=== PATIENT | female | born 1970 | race Caucasian/White ===

== ENCOUNTER → 2018-12-13 12:32 | Outpatient (CLI) | payer OTHER, SELFPAY ==
--- NOTE | 2018-12-13 | DI.US.S_ITS ---
PROCEDURE: US PERIPH VENOUS LOW EXTREM BI INDICATIONS: EDEMA; CALF PAIN TECHNIQUE: Real-time imaging, as well as color and pulse Doppler interrogation, were performed of the deep veins of both legs from the inguinal ligament to the popliteal fossa. COMPARISON: None. FINDINGS: Right: The common femoral, femoral and popliteal veins are normally compressible, and free of intraluminal thrombus. Color and pulse Doppler demonstrate normal phasic intravascular flow. There is normal augmentation response to distal compression maneuver. Left: The common femoral, femoral and popliteal veins are normally compressible, and free of intraluminal thrombus. Color and pulse Doppler demonstrate normal phasic intravascular flow. There is normal augmentation response to distal compression maneuver. IMPRESSION: No deep venous thrombosis identified within either the left or right lower extremities. Dictated by: Bishop Torrez [facility] Interpreted: Gurdeep Sanchez MD on 12/13/2018 at 15:21 Approved by: Gurdeep Sanchez M.D. on 12/13/2018 at 16:32
--- NOTE | 2018-12-13 | DI.RAD.S_ITS ---
PROCEDURE: XR FOOT LT MIN 3V INDICATIONS: Localized swelling, mass and lump, lower limb, gunnar TECHNIQUE: 3 views of the foot were acquired. COMPARISON: None. FINDINGS: Bones: No fractures or dislocations. No suspicious bony lesions. Mild bunion and first metatarsophalangeal joint degeneration. Soft tissues: No tibiotalar joint effusion. Achilles tendon appears normal. IMPRESSION: No mass is identified. Mild bunion first metatarsophalangeal joint degeneration. Dictated by: Pedro Lima M.D. on 12/13/2018 at 17:28 Approved by: Pedro Lima M.D. on 12/13/2018 at 17:29
--- NOTE | 2018-12-13 | DI.RAD.S_ITS ---
PROCEDURE: XR FOOT RT MIN 3V INDICATIONS: Localized swelling, mass and lump, lower limb, gunnar TECHNIQUE: 3 views of the foot were acquired. COMPARISON: [facility], CR, XR FOOT LT MIN 3V, 12/13/2018, 12:48. FINDINGS: Bones: No fractures or dislocations. No suspicious bony lesions. Soft tissues: No tibiotalar joint effusion. Achilles tendon appears normal. IMPRESSION: No mass is identified. If clinical symptoms persist or clinical suspicion for pathology is high, a repeat examination in 7-10 days, or advanced imaging such as CT or MRI is suggested for further evaluation. Dictated by: Pedro Lima M.D. on 12/13/2018 at 17:26 Approved by: Pedro Lima M.D. on 12/13/2018 at 17:28
[2018-12-13 13:36] LABS: Add Manual Diff / Slide Review NO; Basophils Absolute Auto 0 /uL (0-100); Basophils Percent Auto 0.4 % (0-2); Eosinophils Absolute Auto 0 /uL (0-450); Eosinophils Percent Auto 0.3 % (2-4); Hematocrit 42.4 % (36-46); Hemoglobin 14.1 g/dL (12.0-16.0); Lymphocytes Absolute Auto 1100 /uL (1100-4500); Lymphocytes Percent Auto 23.2 % (25-40); Mean Corpuscular HGB Conc 33.3 % (30-36); Mean Corpuscular Hemoglobin 29.6 PG (26-34); Monocytes Absolute Auto 400 /uL (0-900); Monocytes Percent Auto 7.2 % (3-14); Neutrophils Absolute Auto 3400 /uL (1500-7000); Neutrophils Percent Auto 68.9 % (50-75); Platelet Count 265 X10^3/uL (150-400); Red Blood Cell Count 4.77 X10^6/uL (4.0-5.2); Red Cell Distribution Width 13.8 % (11.6-14.8); White Blood Cell Count 4.9 X10^3/uL (4.5-11.0)
[2018-12-13 13:44] LABS: Alanine Aminotransferase 43 IU/L (9-52); Albumin 4.6 g/dL (3.5-5.0); Albumin Globulin Ratio 1.4 (1.0-2.8); Alkaline Phosphatase 52 U/L (38-126); Aspartate Aminotransferase 35 IU/L (14-36); Bilirubin Total 0.7 mg/dL (0.2-1.3); Blood Urea Nitrogen 9 mg/dL (7-17); Calcium 9.1 mg/dL (8.4-10.2); Carbon Dioxide 27 mmol/L (22-32); Chloride 105 mmol/L (98-107); Cholesterol 234 mg/dL (140-199); Estimated Glomerular Filt Rate > 60.0 mL/min (>60); Globulin 3.2 g/dL (1.7-4.1); Glucose 100 mg/dL (70-100); HDL Cholesterol 61 mg/dL (40-60); HEMOLYSIS < 15 (0-50); LDL Cholesterol Calculated 151 mg/dL (<100); Potassium 4.2 mmol/L (3.4-5.1); Sodium 141 mmol/L (137-145); Total Protein 7.8 g/dL (6.3-8.2); Triglycerides 110 mg/dL (35-150)
[2018-12-13 13:54] LABS: C-Reactive Protein Quant < 0.5 mg/dL (<1.0)
[2018-12-13 13:57] LABS: Free T4, Direct Thyroxine 0.98 ng/dL (0.78-2.19)
[2018-12-13 14:11] LABS: Thyroid Stimulating Hormone 1.73 uIU/mL (0.47-4.68)
[2018-12-13 14:14] LABS: Erythrocyte Sedimentation Rate 9 MM/HR (0-20)
== END ==
PROVIDERS: Visit Provider Internal Medicine
DX: M79.662 Pain in left lower leg (principal); M79.661 Pain in right lower leg; R22.43 Localized swelling, mass and lump, lower limb, bilateral; M19.072 Primary osteoarthritis, left ankle and foot; M21.612 Bunion of left foot
CPT/HCPCS: 36415; 73630; 80053; 80061; 84439; 84443; 85025; 85651; 86140; 93970

== ENCOUNTER → 2020-02-12 09:29 | Outpatient (CLI) | payer OTHER, SELFPAY ==
--- NOTE | 2020-02-12 | DI.US.S_ITS ---
LIMITED ULTRASOUND OF LEFT BREAST: 02/12/2020 CLINICAL: Palpable left breast lumps. Comparison is made to exams dated: 02/12/2020 mammogram - [facility], 05/02/2019 mammogram, 01/18/2018 mammogram, 11/24/2016 mammogram - [facility], and 08/07/2008 mammogram - [facility]. Real-time ultrasound of the left breast 1 o'clock and 9-10 o'clock regions was performed. Spears scale images of the real-time examination were reviewed. No significant abnormalities were seen sonographically in the left breast in the region of the palpable abnormalities. IMPRESSION: NEGATIVE There is no sonographic evidence of malignancy. A 1 year screening mammogram is recommended. Exam findings conveyed to the patient. The patient is advised to monitor for significant change. This exam was interpreted at Station ID: [id number]. Electronically Signed By: Boo Barone M.D. slc/:02/12/2020 12:06:07 letter sent: Normal Exam Ultrasound BI-RADS: 1 Negative
--- NOTE | 2020-02-12 | DI.MG.S_ITS ---
BILATERAL DIGITAL DIAGNOSTIC MAMMOGRAM 3D/2D: 02/12/2020 CLINICAL: Bilateral breast mass. Comparison is made to exams dated: 05/02/2019 mammogram, 01/18/2018 mammogram, and 11/24/2016 mammogram - [facility] [place]. The tissue of both breasts is heterogeneously dense. This may lower the sensitivity of mammography. No significant masses, calcifications, or other findings are seen in either breast. No significant interval change seen. IMPRESSION: INCOMPLETE: NEEDS ADDITIONAL IMAGING EVALUATION No mammographic evidence of malignancy. A targeted ultrasound of the palpable abnormalities in both breasts is recommended and will immediately follow. This exam was interpreted at Station ID: [id number]. NOTE: For mammograms, a report in lay terms will be sent to the patient. Approximately 15% of breast malignancies will not be visualized mammographically. In the management of a palpable breast mass, a negative mammogram must not discourage biopsy of a clinically suspicious lesion. Electronically Signed By: Boo Barone M.D. slc/:02/12/2020 10:55:58 ACR BI-RADS Category 0: Incomplete [id number]
--- NOTE | 2020-02-12 | DI.US.S_ITS ---
LIMITED ULTRASOUND OF RIGHT BREAST: 02/12/2020 CLINICAL: Palpable right breast lumps. Comparison is made to exams dated: 02/12/2020 mammogram - [facility], 05/02/2019 mammogram, 01/18/2018 mammogram, 11/24/2016 mammogram - [facility], and 08/07/2008 mammogram - [facility]. Real-time ultrasound of the right breast 10-12 o'clock region was performed. Spears scale images of the real-time examination were reviewed. No significant abnormalities were seen sonographically in the right breast in the region of the palpable abnormality. IMPRESSION: NEGATIVE There is no sonographic evidence of malignancy. A 1 year screening mammogram is recommended. Exam findings were conveyed to the patient. The patient is advised to monitor for significant change. This exam was interpreted at Station ID: [id number]. Electronically Signed By: Boo Barone M.D. slc/:02/12/2020 12:03:41 letter sent: Normal Exam Ultrasound BI-RADS: 1 Negative
== END ==
PROVIDERS: PCP Internal Medicine; Referring Provider Internal Medicine; Visit Provider Internal Medicine
DX: R92.8 Other abnormal and inconclusive findings on diagnostic imaging of breast (principal); N63.10 Unspecified lump in the right breast, unspecified quadrant; N63.20 Unspecified lump in the left breast, unspecified quadrant
CPT/HCPCS: 76642; 77066; G0279

== ENCOUNTER → 2020-08-09 19:29 | Outpatient (ROUT) | payer OTHER, SELFPAY ==
[2020-08-09 19:47] LABS: Add Manual Diff / Slide Review NO; Basophils Absolute Auto 0 /uL (0-100); Basophils Percent Auto 0.7 % (0-2); Eosinophils Absolute Auto 0 /uL (0-450); Eosinophils Percent Auto 0.8 % (2-4); Hematocrit 44.7 % (36-46); Hemoglobin 14.5 g/dL (12.0-16.0); Lymphocytes Absolute Auto 1400 /uL (1100-4500); Mean Corpuscular HGB Conc 32.4 % (30-36); Mean Corpuscular Volume 89.5 fL (80-100); Monocytes Absolute Auto 300 /uL (0-900); Monocytes Percent Auto 6.6 % (3-14); Neutrophils Absolute Auto 3000 /uL (1500-7000); Neutrophils Percent Auto 62.9 % (50-75); Platelet Count 254 X10^3/uL (150-400); Red Cell Distribution Width 13.3 % (11.6-14.8); White Blood Cell Count 4.8 X10^3/uL (4.5-11.0)
[2020-08-09 19:55] LABS: Alanine Aminotransferase 39 IU/L (<35); Albumin 4.5 g/dL (3.5-5.0); Albumin Globulin Ratio 1.5 (1.0-2.8); Alkaline Phosphatase 62 U/L (38-126); Amylase 56 U/L (30-110); Aspartate Aminotransferase 31 IU/L (14-36); BUN Creatinine Ratio 32.2 (6-22); Bilirubin Total 0.5 mg/dL (0.2-1.3); Blood Urea Nitrogen 19 mg/dL (7-17); Calcium 9.2 mg/dL (8.4-10.2); Carbon Dioxide 28 mmol/L (22-32); Chloride 103 mmol/L (98-107); Cholesterol 271 mg/dL (140-199); Estimated Glomerular Filt Rate > 60.0 mL/min (>60); Glucose 90 mg/dL (70-100); HDL Cholesterol 59 mg/dL (40-60); HEMOLYSIS < 15 (0-50); LDL Cholesterol Calculated 192 mg/dL (<100); Lipase 114 U/L (23-300); Potassium 4.3 mmol/L (3.4-5.1); Sodium 138 mmol/L (137-145); Total Protein 7.5 g/dL (6.3-8.2); Triglycerides 98 mg/dL (35-150)
== END ==
PROVIDERS: PCP Internal Medicine; Visit Provider Physician Assistant
DX: R10.9 Unspecified abdominal pain (principal); I10 Essential (primary) hypertension; E78.2 Mixed hyperlipidemia
CPT/HCPCS: 80053; 80061; 82150; 83690; 85025

== ENCOUNTER → 2020-08-13 15:28 | Outpatient (CLI) | payer OTHER, SELFPAY ==
--- NOTE | 2020-08-13 | DI.US.S_ITS ---
PROCEDURE: US ABDOMEN COMPLETE INDICATIONS: RIGHT ABDOMINAL PAIN TECHNIQUE: Real-time scanning was performed of the abdominal and retroperitoneal organs, with image documentation. COMPARISON: None. FINDINGS: Liver: Liver is normal in size and homogeneous in echotexture. The left lobe of the liver is not well seen. The main portal vein demonstrates normal size and demonstrates normal appearing, hepatopetal flow. Gallbladder: No findings of gallstones or sludge are seen. The gallbladder wall is not thickened, measuring 3 mm or less. No specific pericholecystic fluid is seen. The sonographic Castillo sign is negative. Biliary ducts: Intrahepatic bile ducts are non-dilated. Extrahepatic bile duct caliber measures 3 mm. Normal is 6-7 mm or less in diameter, or 10 mm or less post-cholecystectomy. Pancreas: Not well seen. Spleen: Spleen is normal in size and homogeneous in echotexture. Kidneys: Kidneys are normal in size and echotexture. Right kidney measures 11.1 cm long; left kidney measures 11.4 cm long. No hydronephrosis or nephrolithiasis. No solid masses. Aorta: Visualized aorta is normal in caliber at less than 3 cm. Iliacs: Proximal common iliac arteries are normal in caliber at less than 2.5 cm. IVC: Intrahepatic inferior vena cava is patent. Miscellaneous: No free abdominal fluid. This study is limited by body habitus and overlying bowel gas. Additional, dedicated ultrasound scanning is performed at the area of right lower quadrant. No focal ultrasound abnormalities are seen within this region. No appendix (either normal or abnormal) is identified on this study. IMPRESSION: No ultrasound abnormality can be seen involving the right lower quadrant. The gallbladder demonstrates a normal sonographic appearance. No biliary dilatation is seen. If it would be helpful for clinical management decision making, please consider a dedicated CT of the abdomen and pelvis with IV and oral contrast for further evaluation. Dictated by: Vishal Moran M.D. on 08/13/2020 at 16:36 Approved by: Vishal Moran M.D. on 08/13/2020 at 16:37
== END ==
PROVIDERS: PCP Physician Assistant; Referring Provider Physician Assistant; Visit Provider Physician Assistant
DX: R10.9 Unspecified abdominal pain (principal)
CPT/HCPCS: 76700